=== PATIENT | female | born 1960 | race Caucasian/White ===

== ENCOUNTER → 2020-12-21 | Outpatient (CLI) | payer OTHER, BC | LOC: M.LAB 12:46 | PROVIDERS: ATTEND Orthopaedic Surgery | DX: Z01.812 Encounter for preprocedural laboratory examination (principal); Z20.822 Contact with and (suspected) exposure to COVID-19 ==

== ENCOUNTER → 2020-12-26 | Outpatient (CLI) | payer OTHER, BC | LOC: M.LAB 09:44 | PROVIDERS: ATTEND Internal Medicine Gastroenterology | DX: Z01.812 Encounter for preprocedural laboratory examination (principal); Z20.822 Contact with and (suspected) exposure to COVID-19 ==

== ENCOUNTER → 2020-12-30 | Outpatient (CLI) | payer OTHER, BC ==
[2020-12-30 12:00] LABS: HEMOGLOBIN 14.8 gm/dL (12.0-15.0); NUCLEATED RBCS 0 /100WBC
[2020-12-30 12:03] LABS: HEMATOCRIT 44.3 % (37.0-47.0); MCHC 33.3 g/dL (28.0-37.0); MCV 93.1 fL (80.0-100.0); MPV 7.1 fl. (7.2-11.1); PLATELET COUNT* 219 thou/uL (150-400); RBC 4.75 mil/uL (4.20-5.00); RDW-CV 15.5 % (10.5-14.5); WBC 7.9 thou/uL (4.0-11.0)
[2020-12-30 12:12] LABS: ALBUMIN 3.7 g/dL (3.4-5.0); CREATININE 0.8 mg/dL (0.6-1.3); POTASSIUM 4.3 mmol/L (3.5-5.1); TOTAL BILIRUBIN 0.5 mg/dL (<0.1-1.0); TOTAL PROTEIN 6.9 g/dL (6.4-8.2)
[2020-12-30 12:32] LABS: ABSOLUTE LYMPHOCYTES 1.2 thou/uL (0.8-5.3); ABSOLUTE MONOCYTES 0.6 thou/uL (0.0-1.2); ABSOLUTE NEUTROPHILS 6.1 thou/uL (1.6-8.1); PLATELET ESTIMATE ADEQUATE
[2020-12-30 12:33] LABS: ANISOCYTOSIS 1+; POIKILOCYTOSIS 1+
[2020-12-30 13:06] LABS: ESR (SEDRATE) 12 mm/hr (0-30)
== END ==
LOC: M.NUC 11:35
PROVIDERS: ATTEND Internal Medicine Gastroenterology
DX: R10.9 Unspecified abdominal pain (principal)